=== PATIENT | female | born 1980 | race American Indian/Alaskan Native ===

== ENCOUNTER 2017-10-27 00:10 | Emergency (ER) | payer SELFPAY ==
[2017-10-27 01:41] LABS: Basophils % (Auto) 0.6 % (0.0-1.8); Eosinophils # (Auto) 0.2 K/mm3 (0.0-0.4); Eosinophils % (Auto) 2.3 % (0.0-4.3); Hematocrit 38.2 % (30.3-42.9); Hemoglobin 12.6 gm/dl (10.1-14.3); Lymphocytes # (Auto) 3.8 K/mm3 (1.2-5.4); Lymphocytes % (Auto) 48.9 % (13.4-35.0); Mean Corpuscular HGB Conc 33 % (30-34); Mean Corpuscular Hemoglobin 31 pg (28-32); Mean Corpuscular Volume 95 fl (79-97); Monocytes # (Auto) 0.6 K/mm3 (0.0-0.8); Monocytes % (Auto) 7.7 % (0.0-7.3); Platelet Count 358 K/mm3 (140-440); Red Blood Count 4.05 M/mm3 (3.65-5.03)
--- NOTE | 2017-10-27 01:42 | XRay Report ---
FINAL REPORT EXAM: XR CHEST ROUTINE 2V HISTORY: Shortness of breath COMPARISON: None available. FINDINGS:: Frontal and lateral views of the chest obtained. Cardiac silhouette is within normal limits. No focal consolidation or effusion. No pneumothorax. Visualized bony thorax is grossly intact. IMPRESSION:: No acute findings.
[2017-10-27 02:00] LABS: BUN/Creatinine Ratio 16; Blood Urea Nitrogen 11 mg/dL (7-17); Calcium 9.1 mg/dL (8.4-10.2); Hemolysis Index 6
[2017-10-27] MEDS ORDERED: SUBLIMAZE IV ONE (09:04)
[2017-10-27] MEDS ORDERED: NACL 0.9% 500 ML 500 ML IV ONE (09:04)
--- NOTE | 2017-10-27 09:06 | Emergency Department Report ---
ED General Adult HPI - General Chief complaint: Chest Pain Stated complaint: CHEST PAIN Time Seen by Provider: 10/27/17 08:54 Source: patient, RN notes reviewed Mode of arrival: Ambulatory Limitations: No Limitations - History of Present Illness Initial comments: This is a 37-year-old female, the patient is previously unknown to this provider , the patient presents to the ER with a complaint of right leg pain, chest pain and shortness of breath. 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 The patient presents today with a complaint of right lower extremity pain that starts in the calf and goes proximal. The pain is sharp, and increases with palpation and decreases with rest. She also complains of shortness of breath. This is new for her. 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 She denies vomiting, she denies diaphoresis. There is no family history of heart disease that she is aware of, however she does endorse nausea. The patient to me denies hematemesis and bright red blood per rectum. 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 -: Gradual Location: chest, right, lower extremity Severity scale (0 -10): 9 Consistency: intermittent Improves with: rest Worsens with: movement Associated Symptoms: chest pain, shortness of breath. denies: confusion - Related Data Previous Rx's Medication Instructions Recorded Last Taken Type Aspirin [Aspirin BABY CHEW TAB] 81 mg PO QDAY #30 tab.chew 10/27/17 Unknown Rx Clindamycin HCl 300 mg PO QID #20 capsule 10/27/17 Unknown Rx Allergies Allergy/AdvReac Type Severity Reaction Status Date / Time codeine Allergy Swelling Verified 10/27/17 00:55 ED Review of Systems ROS: Stated complaint: CHEST PAIN Other details as noted in HPI ED Past Medical Hx - Past Medical History Previous Medical History?: No - Surgical History Past Surgical History?: No - Social History Smoking Status: Never Smoker Substance Use Type: None - Medications Home Medications: Home Medications Medication Instructions Recorded Confirmed Last Taken Type Aspirin [Aspirin BABY CHEW TAB] 81 mg PO QDAY #30 tab.chew 10/27/17 Unknown Rx Clindamycin HCl 300 mg PO QID #20 capsule 10/27/17 Unknown Rx ED Physical Exam - General Limitations: No Limitations General appearance: alert, in no apparent distress - Head Head exam: Present: atraumatic, normocephalic - Eye Eye exam: Present: normal appearance, EOMI. Absent: nystagmus - ENT ENT exam: Present: normal exam, normal orophraynx, mucous membranes moist - Neck Neck exam: Present: normal inspection, full ROM - Respiratory Respiratory exam: Present: normal lung sounds bilaterally. Absent: respiratory distress - Cardiovascular Cardiovascular Exam: Present: regular rate, normal rhythm, normal heart sounds. Absent: bradycardia, tachycardia, irregular rhythm, systolic murmur, diastolic murmur, rubs, gallop - GI/Abdominal GI/Abdominal exam: Present: soft, tenderness, normal bowel sounds, other (there is diffuse lower abdominal tenderness, there is no rebound, guarding or peritoneal signs). Absent: distended, guarding, rebound, rigid, pulsatile mass - Extremities Exam Extremities exam: Present: normal inspection (during the lower extremity examination, escorted by nurse Evelyn Hunt), full ROM, normal capillary refill, calf tenderness, other (there is right-sided calf Tenderness, there is right quadriceps tenderness, there is no inguinal tenderness.). Absent : pedal edema, joint swelling - Back Exam Back exam: Present: normal inspection, full ROM. Absent: paraspinal tenderness , vertebral tenderness - Neurological Exam Neurological exam: Present: alert, oriented X3, CN II-XII intact, other ( Extraocular movements intact. Tongue midline. No facial droop. Facial sensation intact to light touch in the V1, V2, V3 distribution bilaterally. 5 and 5 strength in 4 extremities.. Sensation is intact to light touch in 4 extremities.). Absent: motor sensory deficit - Psychiatric Psychiatric exam: Present: anxious - Skin Skin exam: Present: warm, dry, intact, normal color. Absent: rash ED Course Vital Signs 10/27/17 10/27/17 10/27/17 00:57 06:24 06:30 Temperature 98.4 F Pulse Rate 92 H 57 L 71 Respiratory 18 14 Rate Blood Pressure 130/84 117/79 Blood Pressure [Left] O2 Sat by Pulse 99 98 100 Oximetry 10/27/17 10/27/17 10/27/17 06:45 07:00 07:15 Temperature Pulse Rate 78 83 84 Respiratory 15 18 15 Rate Blood Pressure 117/79 124/81 117/79 Blood Pressure [Left] O2 Sat by Pulse 98 99 Oximetry 10/27/17 10/27/17 10/27/17 07:30 07:45 07:52 Temperature Pulse Rate 84 82 83 Respiratory 17 22 18 Rate Blood Pressure 123/81 123/81 Blood Pressure 123/81 [Left] O2 Sat by Pulse 99 97 99 Oximetry 10/27/17 10/27/17 10/27/17 08:00 08:15 08:30 Temperature Pulse Rate 83 84 79 Respiratory 16 10 L 16 Rate Blood Pressure 125/77 125/77 126/84 Blood Pressure [Left] O2 Sat by Pulse 99 98 99 Oximetry 10/27/17 10/27/17 10/27/17 08:45 09:01 09:15 Temperature Pulse Rate 82 81 83 Respiratory 16 15 19 Rate Blood Pressure 126/84 126/84 126/84 Blood Pressure [Left] O2 Sat by Pulse 96 Oximetry 10/27/17 10/27/17 10/27/17 10:49 11:00 11:15 Temperature Pulse Rate 88 Respiratory 18 Rate Blood Pressure 126/84 117/80 117/80 Blood Pressure 129/83 [Left] O2 Sat by Pulse 98 97 97 Oximetry 10/27/17 10/27/17 10/27/17 11:30 12:03 12:15 Temperature Pulse Rate 96 H Respiratory 16 Rate Blood Pressure 120/83 120/83 121/85 Blood Pressure [Left] O2 Sat by Pulse 99 98 97 Oximetry 10/27/17 10/27/17 10/27/17 12:31 12:45 13:01 Temperature Pulse Rate 81 80 82 Respiratory 12 13 13 Rate Blood Pressure 121/85 120/83 120/83 Blood Pressure [Left] O2 Sat by Pulse 98 97 99 Oximetry - Reevaluation(s) Reevaluation #1: 10/27/17 10:51 Differential diagnosis, including but not limited to: Cardiomyopathy, pulmonary embolus, iliac vein thrombosis, IVC thrombosis, acute coronary syndrome, pneumonia lower extremity DVT, Assessment and plan: 37-year-old female with diffuse abdominal tenderness, chest pain, shortness of breath, right lower extremity pain. Negative D dimer is appreciated, but I would not consider the patient to be low risk by clinical history, therefore this test is not adequate to exclude probable embolic disease. Given abdominal tenderness and undifferentiated process, I am compelled to withhold systemic anticoagulation at this time, until a CT scan of the abdomen and pelvis is obtained and can exclude any condition or would require emergent surgery. A bilateral lower extremity DVT study has been completed, and I'm awaiting the interpretation, and there was a significant delay in patient getting CAT scan because she was quite anxious about IV placement and initially refused nursing IV placement. In addition, the patient requested that I speak to her primary care doctor over the phone, and she gave verbal and signed informed consent for me to discuss her medical care with her primary care physician. When I initially went in to interview the patient, her crisis worker apparently had her primary care doctor on the cellular phone on the speaker function, and I informed patient and family/companions that I did not verbally consents to being on speaker phone, but that I would be amenable to speaking to the patient' s primary care doctor on a regular phone conversation as long as informed consent was signed. 10/27/17 10:54 Reevaluation #2: 10/27/17 15:39 CT scan of the chest negative. Lower extremity DVT study negative. CT scan of abdomen and pelvis simply suggests abdominal wall cellulitis. Extensive discussion had with the patient. I recommended admission to the hospital for acute coronary syndrome risk stratification and stress test. Patient requested that I speak to her primary care doctor, Dr. Black. I relayed the patient's exam findings, CT scan findings, laboratory studies and EKG findings to her private physician. I also relayed my recommendation for admission to the hospital for acute coronary syndrome risk stratification. The patient is not wanting to stay in the hospital, and she is going to sign out AGAINST MEDICAL ADVICE. The patient is alert and oriented 3, she is free from distracting injury, and she exhibits decision-making capacity. The risks of leaving AGAINST MEDICAL ADVICE, including , disability, paralysis, loss of quality of life for extensively discussed with the patient, who verbalized understanding, and this was also witnessed by nurse Kristy Sales. 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 Patient will be discharged at this time with an aspirin prescription, and I will refer her to local cardiology practices. For the patient's abdominal wall cellulitis, she will be discharged with clindamycin. ED Medical Decision Making - Lab Data Result diagrams: 10/27/17 01:22 10/27/17 01:22 Vital Signs 10/27/17 10/27/17 10/27/17 00:57 06:24 06:30 Temperature 98.4 F Pulse Rate 92 H 57 L 71 Respiratory 18 14 Rate Blood Pressure 130/84 117/79 Blood Pressure [Left] O2 Sat by Pulse 99 98 100 Oximetry 10/27/17 10/27/17 10/27/17 06:45 07:00 07:52 Temperature Pulse Rate 78 83 83 Respiratory 15 18 18 Rate Blood Pressure 117/79 124/81 Blood Pressure 123/81 [Left] O2 Sat by Pulse 98 99 Oximetry Lab Results 10/27/17 10/27/17 10/27/17 Range/Units 01:22 01:22 01:22 WBC (4.5-11.0) K/mm3 RBC (3.65-5.03) M/mm3 Hgb (10.1-14.3) gm/dl Hct (30.3-42.9) % MCV (79-97) fl MCH (28-32) pg MCHC (30-34) % RDW (13.2-15.2) % Plt Count (140-440) K/mm3 Lymph % (Auto) (13.4-35.0) % [place] % (Auto) (0.0-7.3) % Eos % (Auto) (0.0-4.3) % Baso % (Auto) (0.0-1.8) % Lymph # (1.2-5.4) K/mm3 [place] # (0.0-0.8) K/mm3 Eos # (0.0-0.4) K/mm3 Baso # (0.0-0.1) K/mm3 Seg Neutrophils % (40.0-70.0) % Seg Neutrophils # (1.8-7.7) K/mm3 D-Dimer < 135 (0-234) ng/mlDDU Sodium 140 (137-145) mmol/L Potassium 3.7 (3.6-5.0) mmol/L Chloride 100.2 (98-107) mmol/L Carbon Dioxide 28 (22-30) mmol/L Anion Gap 16 mmol/L BUN 11 (7-17) mg/dL Creatinine 0.7 (0.7-1.2) mg/dL Estimated GFR > 60 ml/min BUN/Creatinine Ratio 16 % Glucose 100 (65-100) mg/dL Calcium 9.1 (8.4-10.2) mg/dL Troponin T (0.00-0.029) ng/mL HCG, Qual Negative (Negative) 10/27/17 10/27/17 Range/Units 01:22 01:22 WBC 7.8 (4.5-11.0) K/mm3 RBC 4.05 (3.65-5.03) M/mm3 Hgb 12.6 (10.1-14.3) gm/dl Hct 38.2 (30.3-42.9) % MCV 95 (79-97) fl MCH 31 (28-32) pg MCHC 33 (30-34) % RDW 14.0 (13.2-15.2) % Plt Count 358 (140-440) K/mm3 Lymph % (Auto) 48.9 H (13.4-35.0) % [place] % (Auto) 7.7 H (0.0-7.3) % Eos % (Auto) 2.3 (0.0-4.3) % Baso % (Auto) 0.6 (0.0-1.8) % Lymph # 3.8 (1.2-5.4) K/mm3 [place] # 0.6 (0.0-0.8) K/mm3 Eos # 0.2 (0.0-0.4) K/mm3 Baso # 0.0 (0.0-0.1) K/mm3 Seg Neutrophils % 40.5 (40.0-70.0) % Seg Neutrophils # 3.1 (1.8-7.7) K/mm3 D-Dimer (0-234) ng/mlDDU Sodium (137-145) mmol/L Potassium (3.6-5.0) mmol/L Chloride (98-107) mmol/L Carbon Dioxide (22-30) mmol/L Anion Gap mmol/L BUN (7-17) mg/dL Creatinine (0.7-1.2) mg/dL Estimated GFR ml/min BUN/Creatinine Ratio % Glucose (65-100) mg/dL Calcium (8.4-10.2) mg/dL Troponin T < 0.010 (0.00-0.029) ng/mL HCG, Qual (Negative) - EKG Data -: EKG Interpreted by Me - EKG Data When compared to previous EKG there are: previous EKG unavailable 10/27/17 10:51 Normal sinus, 78 bpm, normal axis, normal intervals, T-wave inversions in lead 3 , abnormal EKG, atrial enlargement, not morphologically consistent with ST elevation myocardial infarction, there is no prior for comparison. - Radiology Data Radiology results: report reviewed, image reviewed X-ray of the chest is negative for acute disease LIVE [facility] DARLING HATCH Female : 1980 [facility]# [id number] 10/27/17 11:21 - Radiology Dept. Note by MELISSA MENDEZ [facility] Num: [id number] : 1980 Patient Age: 37 VASCULAR LAB.PRELIMINARY REPORT.BLE VENOUS DUPLEX DONE BEDSIDE.NO EVIDENCE OF DVT/SVT IN VESSELS VISUALIZED. Initialized on 10/27/17 11:21 - END OF NOTE Critical care attestation.: If time is entered above; I have spent that time in minutes in the direct care of this critically ill patient, excluding procedure time. ED Disposition Clinical Impression: Chest pain, Leg pain Disposition: -07 LEFT AGAINST MED ADVICE Is pt being admited?: No Does the pt Need Aspirin: No Condition: Undetermined Instructions: Chest Pain (ED) Additional Instructions: As we discussed, you have left the hospital/emergency room AGAINST MEDICAL ADVICE. By leaving, you risked , disability, paralysis, permanent loss of quality of life. The ER is open 24 hours a day, 7 days a week. It never closes. Please return to the emergency room right away if and when you change your mind. If you decide not to return to the emergency room, please follow-up with the listed physician referrals as soon as possible. 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 In addition, the local cardiology practices can be contacted as soon as possible and at your convenience, and if the patient informs the listed practices that she was seen here in the ER, they can typically accommodate with a very close appointment. Referrals: PRIMARY CARE, [Primary Care Provider] - 3-5 Days [facility] [Provider Group] - 3-5 Days [facility] [Provider Group] - 3-5 Days
--- NOTE | 2017-10-27 11:02 | XRay Report ---
AP CHEST: History: Chest pain shortness of breath. AP view of the chest demonstrates a normal mediastinal and cardiac contour with clear lungs and normal bony and soft tissue structures. IMPRESSION: Normal AP chest.
[2017-10-27] MEDS ORDERED: NITROSTAT SL PRN (11:27)
[2017-10-27 12:55] LABS: INR 1.02 (0.87-1.13); Partial Thromboplastin Time 23.2 Sec. (24.2-36.6)
--- NOTE | 2017-10-27 13:12 | Cat Scan Report ---
CT angiography of the chest including 3-D reconstructed images. History: Chest pain and shortness of breath. Findings: There is no evidence of pulmonary emboli. The lungs are clear. There is no pleural fluid. Bilateral breast implants are noted. Impression: Negative study.
--- NOTE | 2017-10-27 13:24 | Cat Scan Report ---
CT of the abdomen and pelvis with IV contrast. History: Abdominal pain. Findings: The liver, spleen, pancreas, and gallbladder are normal. The kidneys are normal in size and configuration with no evidence of mass or hydronephrosis. A small hypodensity in the right adnexa probably represents an ovarian cyst. In addition, there to ovoid shaped mass is in the lower pelvis separate from the ovaries both of which are primarily composed of adipose tissue. On the right, the mass measures 3.4 x 4.7 and on the left, the fatty mass measures 1.8 x 3.7 cm. There is minimal calcification in the wall of each of these masses. No abnormal fluid collections are seen. In the subcutaneous tissue of the posterior lower pelvis, there is extensive edema extending over an area measuring approximately 18 cm in diameter. There is no evidence of focal abscess. Impression: 1. Large area of subcutaneous edema in the posterior soft tissues of the upper pelvis consistent with cellulitis. No abscess is seen. Clinical correlation is advised. 2. Bilateral pelvic masses composed primarily of adipose tissue with minimal calcification, probably representing dermoids. These are separate from the ovaries. 3. Right ovarian cyst.
[2017-10-27] MEDS ORDERED: CLEOCIN 300 MG/50 mL 300 MG/50 ML BAG IV ONE (14:45)
[2017-10-27 15:46] VITALS: BP 133/86
== END 2017-10-27 16:50 | disposition left against medical advice (07) ==
LOC: ED 00:10
DX: R07.89 Other chest pain (principal); M79.604 Pain in right leg; R06.02 Shortness of breath; R10.30 Lower abdominal pain, unspecified; K92.0 Hematemesis; K62.5 Hemorrhage of anus and rectum; Z88.5 Allergy status to narcotic agent
CPT/HCPCS: 36415; 71045; 71046; 71275; 74177; 80048; 83880; 84484; 84703; 85025; 85379; 85610; 85730; 93005; 93010; 93970; 96361; 96374; 99285; J3010; J7040; Q9967